=== PATIENT | female | born 1990 | race African-American/Black ===

== ENCOUNTER 2017-10-15 14:09 | Emergency (ER) | payer SELFPAY ==
[~2017-10-15] VITALS: Ht 162.6 cm; Wt 91.0 kg
[2017-10-15] MEDS ORDERED: SODIUM CHLORIDE 0.9% 1,000 ML IV ONE (22:23)
[2017-10-15 22:55] LABS: CLARITY URINE CLOUDY (CLEAR); COLOR URINE YELLOW (YELLOW); KETONES URINE TRACE (NEGATIVE); LEUKOCYTE ESTERASE URINE 2+ (NEGATIVE); NITRITE URINE POSITIVE (NEGATIVE); OCCULT BLOOD URINE 1+ (NEGATIVE); PROTEIN URINE NEGATIVE (NEGATIVE); SPECIFIC GRAVITY URINE 1.018 (1.005-1.030); UROBILINOGEN URINE 0.2 E.U./dL (0.2-1.0)
[2017-10-15 23:04] LABS: CHLORIDE 105 mEq/L (98-107)
[2017-10-15 23:07] LABS: PROTHROMBIN TIME 10.7 sec (9.4-11.6)
[2017-10-15 23:08] LABS: CARBON DIOXIDE 26 mEq/L (21-32)
[2017-10-15 23:14] LABS: BASOPHILS % 0.2 % (0.0-2.0); EOSINOPHILS % 1.2 % (0.0-5.0); HEMATOCRIT. 38.5 % (36.0-48.0); HEMOGLOBIN. 12.2 g/dL (12.0-16.0); LYMPHOCYTES % 14.3 % (20.0-50.0); MEAN CORPUSCULAR HEMOGLOBIN 25.4 pg (28.0-32.0); MEAN CORPUSCULAR VOLUME 80.1 fL (81.0-99.0); MEAN PLATELET VOLUME 7.6 fl (7.4-10.4); MONOCYTES % 7.9 % (2.0-8.0); NEUTROPHILS % 76.4 % (40.0-76.0); PLATELET 311 x1000/uL (130-400); RED BLOOD CELL COUNT 4.81 mill/uL (4.2-5.4); RED CELL DISTRIBUTION WIDTH 14.7 % (11.6-14.6)
[2017-10-15 23:15] LABS: B-HCG QUANTITATIVE < 1 mIU/mL (<3)
[2017-10-15] MEDS ORDERED: ONDANSETRON HCL 4MG/2ML VIAL IV ONE (23:30)
[2017-10-15] MEDS ORDERED: KETOROLAC 30MG/ML VIAL IV ONE (23:30)
[2017-10-16] MEDS ORDERED: CEFTRIAXONE 1 G PREMIX 50 ML IV NR (00:15)
[2017-10-16] MEDS ORDERED: MAGNESIUM/ALUMINUM HYDROXIDE/SIMETHICONE 30ML UDC PO ONE (00:45)
[2017-10-16 03:29] VITALS: BP 120/78
== END 2017-10-16 03:37 | disposition home or self-care (01) ==
LOC: ER 15:39
DX: R19.7 Diarrhea, unspecified (principal); R11.10 Vomiting, unspecified; F12.10 Cannabis abuse, uncomplicated; R79.1 Abnormal coagulation profile
CPT/HCPCS: 36415; 80053; 81001; 81025; 83690; 84702; 85025; 85610; 96361; 96365; 96375; 99284; J0696; J1885; J2405; J7030; Z7610

== ENCOUNTER 2019-07-26 13:05 | Emergency (ER) | payer MEDICAID ==
[~2019-07-26] VITALS: Ht 167.6 cm; Wt 95.0 kg
[2019-07-26 15:15] VITALS: BP 120/78
== END 2019-07-26 14:53 | disposition home or self-care (01) ==
LOC: ER 13:05
DX: B34.9 Viral infection, unspecified (principal); J02.8 Acute pharyngitis due to other specified organisms; F12.10 Cannabis abuse, uncomplicated
CPT/HCPCS: 99283

== ENCOUNTER 2020-12-23 08:15 | Emergency (ER) | payer MEDICAID ==
[~2020-12-23] VITALS: Ht 165.1 cm; Wt 110.0 kg
[2020-12-23] MEDS ORDERED: IBUPROFEN 800MG TABLET PO ONE (09:00)
[2020-12-23 11:45] VITALS: BP 112/80
== END 2020-12-23 11:45 | disposition home or self-care (01) ==
LOC: ER 08:15
DX: J02.9 Acute pharyngitis, unspecified (principal)
CPT/HCPCS: 87070; 87430; 99283

== ENCOUNTER 2021-11-29 11:10 | Emergency (ER) | payer MEDICAID ==
[~2021-11-29] VITALS: Ht 167.6 cm; Wt 90.0 kg
[2021-11-29] MEDS ORDERED: MAGNESIUM/ALUMINUM HYDROXIDE/SIMETHICONE 30ML UDC PO STA (12:13)
[2021-11-29] MEDS ORDERED: ACETAMINOPHEN 325MG TABLET PO STA (12:13)
[2021-11-29] MEDS ORDERED: ONDANSETRON 4MG ODT PO STA (12:13)
[2021-11-29 12:37] LABS: CHLORIDE 108 mEq/L (98-107)
[2021-11-29 12:39] LABS: BASOPHILS % 0.3 % (0.0-2.0); EOSINOPHILS % 0.7 % (0.0-5.0); HEMATOCRIT. 36.3 % (36.0-48.0); LYMPHOCYTES % 22.1 % (20.0-50.0); MEAN CORPUSCULAR HEMOGLOBIN 26.5 pg (28.0-32.0); MEAN CORPUSCULAR VOLUME 79.9 fL (81.0-99.0); MEAN PLATELET VOLUME 7.5 fl (7.4-10.4); MONOCYTES % 9.4 % (2.0-8.0); NEUTROPHILS % 67.5 % (40.0-76.0); PLATELET 270 x1000/uL (130-400); RED BLOOD CELL COUNT 4.55 mill/uL (4.2-5.4); RED CELL DISTRIBUTION WIDTH 14.3 % (11.6-14.6)
[2021-11-29 13:09] LABS: CLARITY URINE CLEAR (CLEAR); COLOR URINE YELLOW (YELLOW); KETONES URINE NEGATIVE (NEGATIVE); LEUKOCYTE ESTERASE URINE NEGATIVE (NEGATIVE); NITRITE URINE NEGATIVE (NEGATIVE); OCCULT BLOOD URINE TRACE (NEGATIVE); PH URINE 5.5 (4.5-8.0); PROTEIN URINE TRACE (NEGATIVE); SPECIFIC GRAVITY URINE 1.015 (1.005-1.030); UROBILINOGEN URINE 0.2 E.U./dL (0.2-1.0)
[2021-11-29 13:14] VITALS: BP 125/79
[2021-11-29] MEDS ORDERED: IBUP-2028 MT (13:46)
== END 2021-11-29 13:57 | disposition home or self-care (01) ==
LOC: ER 11:10
DX: R10.9 Unspecified abdominal pain (principal)
CPT/HCPCS: 36415; 80053; 81003; 81025; 83690; 85025; 99283; Q0162

== ENCOUNTER 2022-01-08 19:23 | Emergency (ER) | payer MEDICAID, OTHER ==
[~2022-01-08] VITALS: Ht 162.6 cm; Wt 91.0 kg
[~2022-01-08 19:23] MED LIST: IBUP-2028 MT
[2022-01-08] MEDS ORDERED: ACETAMINOPHEN 325MG TABLET PO ONE (20:30)
[2022-01-08] MEDS ORDERED: METHOCARBAMOL 500MG TABLET PO SCH (22:00)
[2022-01-08] MEDS ORDERED: METHOCARBAMOL 750MG TABLET PO SCH (22:00)
[2022-01-08] MEDS ORDERED: ACET-2708 MT (22:05)
[2022-01-08] MEDS ORDERED: METH-653 MT (22:05)
[2022-01-08 23:22] VITALS: BP 135/78
== END 2022-01-08 23:23 | disposition home or self-care (01) ==
LOC: ER 19:23
DX: M25.522 Pain in left elbow (principal); M25.531 Pain in right wrist; M54.50 Low back pain, unspecified; V43.52XA Car driver injured in collision with other type car in traffic accident, initial encounter; W22.11XA Striking against or struck by driver side automobile airbag, initial encounter; Y93.89 Activity, other specified; Y92.89 Other specified places as the place of occurrence of the external cause; Y99.8 Other external cause status
CPT/HCPCS: 73080; 73110; 99284